=== PATIENT | male | born 1955 | race Two or more races ===

== ENCOUNTER 2019-12-09 04:41 | Emergency (ER) | payer OTHER ==
[2019-12-09] MEDS ORDERED: PHENAZOPYRIDINE HCL 100 MG TABLET (FP) PO ONE (05:08)
[2019-12-09] MEDS ORDERED: PHENAZOPYRIDINE HCL 100 MG TABLET (FP) ONE (05:08)
--- NOTE | 2019-12-09 05:16 | PDOC ---
History of Present Illness - General Chief Complaint: Urinary Catheter Problem Stated Complaint: CATHETER PROBLEM Past History - Medical History Allergies/Adverse Reactions: Allergies Allergy/AdvReac Type Severity Reaction Status Date / Time No Known Allergies Allergy Verified 12/09/19 04:56 Home Medications: Ambulatory Orders Lisinopril/Hydrochlorothiazide [Lisinopril-Hctz 20-25 mg Tab] 1 tab PO DAILY 09/29/19 Metformin HCl [Glucophage] 500 mg PO BID 09/29/19 Docusate Sodium [Colace] 50 mg PO DAILY 5 Days #5 capsule 12/09/19 Oxybutynin Chloride [Ditropan Xl] 5 mg PO DAILY 4 Days #4 tab.er.24 12/09/19 Anemia: No Asthma: No Cancer: No Cardiac Disorders: No CVA: No COPD: No CHF: No Dementia: No Diabetes: Yes GI Disorders: No Disorders: No HTN: Yes Hypercholesterolemia: No Liver Disease: No Seizures: No Thyroid Disease: No - Surgical History Abdominal Surgery: No Appendectomy: No Cardiac Surgery: No Cholecystectomy: No Lung Surgery: No Neurologic Surgery: No Orthopedic Surgery: Yes (RIGHT ARM SX 2009) - Psycho-Social/Smoking History Smoking History: Never smoked Have you smoked in the past 12 months: No Information on smoking cessation initiated: No - Substance Abuse Hx (Audit-C & DAST Scrn) How often the patient has a drink containing alcohol: Never Score: In Men: 4 or > Positive; In Women: 3 or > Positive: 0 Screen Result (Pos requires Nsg. Audit-10AR): Negative In the last yr the pt used illegal drug/Rx for NonMed reason: No Score: Yes response is considered Positive: 0 Screen Result (Positive result requires Nsg. DAST-10): Negative *Physical Exam - Vital Signs Last Vital Signs Temp Pulse Resp BP Pulse Ox 98.6 F 107 H 20 155/97 100 12/09/19 04:56 12/09/19 04:56 12/09/19 04:56 12/09/19 04:56 12/09/19 04:56 ED Treatment Course - LABORATORY CBC & Chemistry Diagram: 12/09/19 06:30 12/09/19 06:30 - Medications Given in the ED: ED Medications Discontinued Medications Generic Name Dose Route Start Last Admin Trade Name Freq PRN Reason Stop Dose Admin Phenazopyridine HCl 100 mg 12/09/19 05:08 12/09/19 05:12 Pyridium - PO 12/09/19 05:09 100 mg ONCE ONE Administration Medical Decision Making - Medical Decision Making 12/09/19 05:14 HPI: 64yo M hx DM, HTN, and recent unknown bladder surgery (pt states there was a stone and a biopsy was done) on 12/05/[address] Rios at [facility] with placement of catheter c/o penis pain, dysuria and suprapubic pain with urination, and leaking around catheter since surgery. No pain meds tried. On last day bactrim course. Endorses small amounts of blood intermittently in urine. Unable to sleep 2/2 pain. PCP - Cynthia Baez ROS: Constitutional: Positive for fatigue. Negative for chills, fever, diaphoresis. HENT: Negative for sore throat, rhinorrhea, congestion. Eyes: Negative for visual disturbance. Respiratory: Negative for shortness of breath, cough, and wheezing. Cardiovascular: Negative for chest pain, palpitations, and leg swelling. Gastrointestinal: Positive for suprapubic pain. Negative for blood in stool, constipation, diarrhea, nausea, and vomiting. Genitourinary: Positive for dysuria, hematuria, carbone, penile pain. Negative for flank pain. Musculoskeletal: Negative for myalgias, back pain, and neck pain. Skin: Negative for rash. Neurological: Negative for light-headedness, dizziness, vertigo, syncope, weakness, numbness and headaches. Psychiatric/Behavioral: Negative for behavioral problems and confusion. PE: Gen: Alert, NAD, uncomfortable-appearing. HEENT: PERRL, EOMI, MMM, NCAT. No conjunctival pallor. Sclera are non-icteric. CV: Regular rate and rhythm. No murmurs, rubs, or gallops. PULM: No resp distress. CTAB, no wheezes, rales, or rhonchi. ABD: soft, +TTP suprapubic with guarding, ND, no rebound tenderness, no CVA tenderness. : no external abnormalities, carbone catheter in place, no discharge, minimal urine leakage around catheter from urethra, dark urine in bag, bag on calf appears to be pulling at catheter. BACK: No TTP of c/t/l-spine. No step-offs or deformities. MSK: No bony deformities. 2+ pulses in all extremities. NEURO: AAOx3. PERRL. No gross CN deficits. Strength and sensation grossly intact throughout. EXTREMITIES: No cyanosis. No clubbing. No edema. PSYCH: Normal mood and thought pattern. SKIN: Warm and dry. Normal capillary refill. No rashes. No jaundice. MDM: 64yo M hx DM, HTN, and recent unknown bladder surgery (pt states there was a stone and a biopsy was done) on 12/05/[address] Rios at [facility] with placement of catheter c/o penis pain, dysuria and suprapubic pain with urination, and leaking around catheter since surgery. Hemodynamically stable, afebrile, PE notable for suprapubic TTP with guarding and penile pain with minimal movement of catheter, minimal leaking around penis, bag on calf appears to be pulling at catheter in penis, urine dark. Ddx: incorrect catheter size, incorrect catheter placement, leaking catheter, UTI, infection, metabolic derangement, anemia Pt refuses larger catheter Deflated and re-inflated catheter balloon with POCUS and confirmed correct placement in bladder -Pain management: tylenol, pyridium -UA/UC -Dispo: pending UA UA + for UTI -CBC,CMP,BC -EKG -Meropenem 1g []labs, likely admit for catheter-associated UTI failed bactrim Signed out to day team. Discharge - Discharge Information Problems reviewed: Yes Clinical Impression/Diagnosis: Carbone catheter problem Qualifiers: Encounter type: initial encounter Qualified Code(s): T83.9XXA - Unspecified complication of genitourinary prosthetic device, implant and graft, initial encounter Condition: Stable Disposition: HOME - Additional Discharge Information Prescriptions: Docusate Sodium [Colace] 50 mg PO DAILY 5 Days #5 capsule Oxybutynin Chloride [Ditropan Xl] 5 mg PO DAILY 4 Days #4 tab.er.24 - Follow up/Referral Referrals: Cynthia Wise NP [Primary Care Provider] - Gaurav Zaragoza MD [Staff Physician] - - Patient Discharge Instructions Patient Printed Discharge Instructions: How to Care for Your Carbone Catheter -- Male, DI for Dysuria -- Adult Additional Instructions: Lo lai visto por eubanks problema con el catter de Carbone. Lo hemos arreglado y co nfirmado eubanks correcta colocacin con ecografa. Asegrese de mantener la bolsa en eubanks muslo para que no tire de eubanks pene. Siga las instrucciones adjuntas para eubanks cuidado. Llame a eubanks urlogo hoy para programar denise jethro de seguimiento dentro de las 72 horas. Si siente dolor, puede german Tylenol ayesha se indica en el frasco del medicamento, dina no exceda los 4 g de Tylenol al da. Jimena un seguimiento con eubanks mdico de atencin primaria dentro de 1 semana. Regrese al Departamento de Emergencias de inmediato si experimenta fiebre, vmitos, dolor abdominal, incapacidad para orinar o cualquier otro sntoma nuevo o que empeora. You have been seen for your carbone catheter problem. We have fixed it and confirmed correct placement with ultrasound. Make sure you keep the bag on your thigh so it does not pull at your penis. Follow the attached instructions for care. We have sent you medication that might help the discomfort. It went to the [facility] at [address] [place] [address], in [place], [place]. Please fill this prescription today. Take them together. Call your urologist today to make a follow-up appointment for within 72 hours. If you experience pain, you can take Tylenol as directed on the medication bottle, but do not exceed 4g of Tylenol a day. Follow-up with your primary care doctor within 1 week. Return to the Emergency Department immediately if you experience fever, vomiti ng, abdominal pain, inability to urinate, or any other new or worsening symptom. - Post Discharge Activity
[2019-12-09] MEDS ORDERED: ACETAMINOPHEN 325 MG TABLET (FP) PO ONE (05:28)
[2019-12-09 05:32] VITALS: BMI 25.0
[2019-12-09] MEDS ORDERED: ACETAMINOPHEN 325 MG TABLET (FP) ONE (05:32)
--- NOTE | 2019-12-09 06:18 | PDOC ---
Attending Attestation - Resident Resident Name: Sophia Thompson - ED Attending Attestation I have performed the following: I have examined & evaluated the patient, The case was reviewed & discussed with the resident, I agree w/resident's findings & plan - HPI HPI: 12/09/19 06:15 Pt complaining that his carbone cath hurts. Pt's leg bag is hanging low on his leg; coming apart.Pt has no fever. There is red and dark urine in the bag - Physicial Exam PE: 12/09/19 06:16 Pt has minl suprapubic pain. Pt is anxious Pt has no fever no chills Pt has normal HEENT heart and lungs Penis is normal - Medical Decision Making 12/09/19 06:17 Pt's cath was deflated and under US guidance was placed further in bladder and the balloon was re-inflated. Good position,. Pt's cath was affixed with a sticker and leg bag placed tightly on the leg. UA sent for UA and Ucx. Pt signed out to the day ER team Discharge - Discharge Information Problems reviewed: Yes Clinical Impression/Diagnosis: Carbone catheter problem Qualifiers: Encounter type: initial encounter Qualified Code(s): T83.9XXA - Unspecified complication of genitourinary prosthetic device, implant and graft, initial encounter Condition: Stable Disposition: HOME - Additional Discharge Information Prescriptions: Docusate Sodium [Colace] 50 mg PO DAILY 5 Days #5 capsule Oxybutynin Chloride [Ditropan Xl] 5 mg PO DAILY 4 Days #4 tab.er.24 - Follow up/Referral Referrals: Gaurav Zaragoza MD [Staff Physician] - Cynthia Wise NP [Primary Care Provider] - - Patient Discharge Instructions Patient Printed Discharge Instructions: How to Care for Your Carbone Catheter -- Male, DI for Dysuria -- Adult Additional Instructions: Lo lai visto por eubanks problema con el catter de Carbone. Lo hemos arreglado y confirmado eubanks correcta colocacin con ecografa. Asegrese de mantener la bolsa en eubanks muslo para que no tire de eubanks pene. Siga las instrucciones adjuntas para eubanks cuidado. Llame a eubanks urlogo hoy para programar denise jethro de seguimiento dentro de las 72 horas. Si siente dolor, puede german Tylenol ayesha se indica en el frasco del medicamento, dina no exceda los 4 g de Tylenol al da. Jimena un seguimiento con eubanks mdico de atencin primaria dentro de 1 semana. Regrese al Departamento de Emergencias de inmediato si experimenta fiebre, vmitos, dolor abdominal, incapacidad para orinar o cualquier otro sntoma nuevo o que empeora. You have been seen for your carbone catheter problem. We have fixed it and confirmed correct placement with ultrasound. Make sure you keep the bag on your thigh so it does not pull at your penis. Follow the attached instructions for care. We have sent you medication that might help the discomfort. It went to the [facility] at [address] [place] [address], in [place], [place]. Please fill this prescription today. Take them together. Call your urologist today to make a follow-up appointment for within 72 hours. If you experience pain, you can take Tylenol as directed on the medication bottle, but do not exceed 4g of Tylenol a day. Follow-up with your primary care doctor within 1 week. Return to the Emergency Department immediately if you experience fever, vomiting, abdominal pain, inability to urinate, or any other new or worsening symptom. - Post Discharge Activity
[2019-12-09 06:20] LABS: EPI CELLS >36 /uL (0-25.1); HYALINE CASTS 9 /uL (0-3.1); PH,URINE 5.5 (5.0-8.0); URINE APPEARANCE CLOUDY; URINE BACTERIA 54 /uL (0-1359); URINE BILIRUBIN NEGATIVE (NEGATIVE); URINE COLOR ORANGE; URINE GLUCOSE (UA) NEGATIVE (NEGATIVE); URINE KETONE NEGATIVE (NEGATIVE); URINE LEUK ESTERASE 2+ (NEGATIVE); URINE NITRITE NEGATIVE (NEGATIVE); URINE PROTEIN 3+ (NEGATIVE); URINE RBC 11937 /uL (0-23.9); URINE WBC 181 /uL (0-25.8)
[2019-12-09 06:24] VITALS: TEMP 97.8
[2019-12-09] MEDS ORDERED: SODIUM CHLORIDE 1,000 ML IV STA (06:31)
[2019-12-09] MEDS ORDERED: MEROPENEM 1 GM in DEXTROSE 5%-WATER 100 ML IVPB ONE (06:32)
[2019-12-09] MEDS ORDERED: MEROPENEM 1 GM VIAL (RESTRICTED TO ID) IVPB ONE (06:46)
--- NOTE | 2019-12-09 07:19 | PDOC ---
*Physical Exam - Vital Signs Last Vital Signs Temp Pulse Resp BP Pulse Ox 97.8 F 78 17 130/73 98 12/09/19 06:23 12/09/19 06:23 12/09/19 06:23 12/09/19 06:23 12/09/19 06:23 - Physical Exam 12/09/19 07:[address] Thompson. Pt of Brendan Rojo at [facility] Uro px this past week and was d/c on bactrim w/ carbone. Came in w/ penile pain, carbone. Urine in bag was red. UA showed +protein, whole blood, leuk esterase. Started on meropenem. Has not been febrile. When I introduced himself he stated he's now having L chest discomfort -> ordered troponin and EKG. Will wait for labs and then call Dr. Rojo. Call with Dr Rojo: - He stated that the patient is very anxious and is probably in pain due to the catheter placement. He said the size of the catheter is probably responsible for the pain, but a smaller one could lead to an occlusion. - He stated that although the urine is red, this is expected because the pt just had a large bladder stone removed. - he told me "the UA is useless and do not pay any attention to it. He just had a urologic procedure, so I expect the UA to be abnormal." - he told me that changing the antibiotic from bactrim to meropenem based on the UA was not the correct move because the UA is expected to be abnormal. - I asked for a recommendation for the pain, and he suggested (anti-spasmotic) Ditroban 5mg ER qD + colace qD + good hydration. - I told him that, based on the clinical picture - no elevated WBC, no systemic symptoms (no fever, no chills, no diaphoresis), the only abnormal finding is the UA, which is expected to be abnormal at this stage, that the patient can go home with follow-up next week. Dr Rojo did not disagree. Based on this - I will discharge the patient with the suggested medication, strict return precautions, and follow-up referral with Dr. Rojo. Sent Ditropan 5mg ER qD x4 days and Colace 50mg qD x5days to pharmacy. 12/09/19 07:50 12/09/19 09:07 12/09/19 09:32 12/09/19 10:03 Heart Score/ECG Review - Electrocardiogram EKG: Normal - Age Age: >/= 65 ED Treatment Course - LABORATORY CBC & Chemistry Diagram: 12/09/19 06:30 12/09/19 06:30 - ADDITIONAL ORDERS Additional order review: Laboratory Results 12/09/19 05:54 Urine Color [place] Urine Appearance Cloudy Urine pH 5.5 Ur Specific [place] 1.016 Urine Protein 3+ H Urine Glucose (UA) Negative Urine Ketones Negative Urine Blood 3+ H Urine Nitrite Negative Urine Bilirubin Negative Urine Urobilinogen 1.0 Ur Leukocyte Esterase 2+ H Urine WBC (Auto) 181 Urine RBC (Auto) 25744 Urine Casts (Auto) 9 U Epithel Cells (Auto) >36 Urine Bacteria (Auto) 54 - Medications Given in the ED: ED Medications Discontinued Medications Generic Name Dose Route Start Last Admin Trade Name Freq PRN Reason Stop Dose Admin Acetaminophen 975 mg 12/09/19 05:28 12/09/19 05:34 Tylenol - PO 12/09/19 05:29 975 mg ONCE ONE Administration Meropenem 1 gm/ Dextrose 100 mls @ 200 mls/hr 12/09/19 06:32 12/09/19 06:53 IVPB 12/09/19 07:01 200 mls/hr ONCE ONE Administration Phenazopyridine HCl 100 mg 12/09/19 05:08 12/09/19 05:12 Pyridium - PO 12/09/19 05:09 100 mg ONCE ONE Administration Discharge - Discharge Information Problems reviewed: Yes Clinical Impression/Diagnosis: Carbone catheter problem Qualifiers: Encounter type: initial encounter Qualified Code(s): T83.9XXA - Unspecified complication of genitourinary prosthetic device, implant and graft, initial encounter Condition: Stable Disposition: HOME - Admission No - Additional Discharge Information Prescriptions: Docusate Sodium [Colace] 50 mg PO DAILY 5 Days #5 capsule Oxybutynin Chloride [Ditropan Xl] 5 mg PO DAILY 4 Days #4 tab.er.24 - Follow up/Referral Referrals: Gaurav Zaragoza MD [Staff Physician] - Cynthia Wise NP [Primary Care Provider] - - Patient Discharge Instructions Patient Printed Discharge Instructions: How to Care for Your Carbone Catheter -- Male, DI for Dysuria -- Adult Additional Instructions: Lo lai visto por eubanks problema con el catter de Carbone. Lo hemos arreglado y confirmado eubanks correcta colocacin con ecografa. Asegrese de mantener la bolsa en eubanks muslo para que no tire de eubanks pene. Siga las instrucciones adjuntas para eubanks cuidado. Llame a eubanks urlogo hoy para programar denise jethro de seguimiento dentro de las 72 horas. Si siente dolor, puede german Tylenol ayesha se indica en el frasco del medicamento, dina no exceda los 4 g de Tylenol al da. Jimena un seguimiento con eubanks mdico de atencin primaria dentro de 1 semana. Regrese al Departamento de Emergencias de inmediato si experimenta fiebre, vmitos, dolor abdominal, incapacidad para orinar o cualquier otro sntoma nuevo o que empeora. You have been seen for your carbone catheter problem. We have fixed it and confirmed correct placement with ultrasound. Make sure you keep the bag on your thigh so it does not pull at your penis. Follow the attached instructions for care. We have sent you medication that might help the discomfort. It went to the [facility] at [address] [place] [address], in [place], [place]. Please fill this prescription today. Take them together. Call your urologist today to make a follow-up appointment for within 72 hours. If you experience pain, you can take Tylenol as directed on the medication bottle, but do not exceed 4g of Tylenol a day. Follow-up with your primary care doctor within 1 week. Return to the Emergency Department immediately if you experience fever, vomiting, abdominal pain, inability to urinate, or any other new or worsening symptom. - Post Discharge Activity
[2019-12-09 07:46] LABS: BASO % 0.2 % (0-2.0); EOS % 1.3 % (0-4.5); HEMATOCRIT 36.5 % (35.4-49); HEMOGLOBIN 12.5 GM/dL (11.7-16.9); LYMPH % 13.7 % (8-40); MCH 32.1 pg (25.7-33.7); MCHC 34.2 g/dl (32.0-35.9); MEAN CELL VOLUME 93.9 fl (80-96); MEAN PLT VOLUME 9.8 fl (7.5-11.1); MONO % 7.5 % (3.8-10.2); NEUT % 77.3 % (42.8-82.8); PLATELET COUNT 191 K/MM3 (134-434); RBC 3.89 M/mm3 (4.00-5.60); RDW 12.9 % (11.9-15.9); WHITE BLOOD COUNT 6.2 K/mm3 (4.0-10.0)
[2019-12-09 08:22] LABS: ALBUMIN 3.7 g/dl (3.4-5.0); ALK PHOS 65 U/L (45-117); ANION GAP 8 MMOL/L (8-16); BILIRUBIN,TOTAL 0.7 mg/dL (0.2-1); BLOOD UREA NITROGEN 12.2 mg/dL (7-18); CALCIUM 9.7 mg/dL (8.5-10.1); CHLORIDE 101 mmol/L (98-107); CO2 29 mmol/L (21-32); GLUCOSE,RANDOM 158 mg/dL (74-106); POTASSIUM 3.5 mmol/L (3.5-5.1); SGOT/AST 13 U/L (15-37); SGPT/ALT 17 U/L (13-61); SODIUM 138 mmol/L (136-145); TOT PROT 6.6 g/dl (6.4-8.2)
--- NOTE | 2019-12-09 08:51 | EKG ---
Test Reason : Blood Pressure : / mmHG Vent. Rate : 075 BPM Atrial Rate : 075 BPM P-R Int : 198 ms QRS Dur : 090 ms QT Int : 386 ms P-R-T Axes : 064 051 037 degrees QTc Int : 431 ms NORMAL SINUS RHYTHM POSSIBLE LEFT ATRIAL ENLARGEMENT BORDERLINE ECG WHEN COMPARED WITH ECG OF 29-SEP-2019 15:35, PREMATURE VENTRICULAR COMPLEXES ARE NO LONGER PRESENT MINIMAL CRITERIA FOR INFERIOR INFARCT ARE NO LONGER PRESENT NONSPECIFIC T WAVE ABNORMALITY NO LONGER EVIDENT IN INFERIOR LEADS NONSPECIFIC T WAVE ABNORMALITY NO LONGER EVIDENT IN LATERAL LEADS Confirmed by Marisol Montemayor ([id number]) on 12/09/2019 8:50:53 AM Referred By: Confirmed By:Marisol Montemayor
[2019-12-09 10:17] VITALS: BP 137/62; PULSE 61
--- NOTE | 2019-12-10 10:56 | EKG ---
Test Reason : Blood Pressure : / mmHG Vent. Rate : 059 BPM Atrial Rate : 059 BPM P-R Int : 196 ms QRS Dur : 092 ms QT Int : 408 ms P-R-T Axes : 060 045 041 degrees QTc Int : 403 ms SINUS BRADYCARDIA POSSIBLE LEFT ATRIAL ENLARGEMENT BORDERLINE ECG WHEN COMPARED WITH ECG OF 09-DEC-2019 06:45, NO SIGNIFICANT CHANGE WAS FOUND Confirmed by Chandler Harris ([id number]) on 12/10/2019 10:55:47 AM Referred By: Confirmed By:Chandler Harris
== END 2019-12-09 10:29 | disposition home or self-care (01) ==
LOC: JER 04:41
PROC: 3E033GC Introduction of Other Therapeutic Substance into Peripheral Vein, Percutaneous Approach (ICD-10-PCS; principal; 2019-12-09)
DX: T83.9XXA Unspecified complication of genitourinary prosthetic device, implant and graft, initial encounter (principal)
CPT/HCPCS: 36415; 80053; 81003; 83036; 84484; 85025; 87040; 87086; 93005; 93010; 99284-25; U0003

== ENCOUNTER 2021-03-17 09:25 | Emergency (ER) | payer OTHER ==
[2021-03-17 09:37] VITALS: PULSE 84; TEMP 97.6; BMI 31.6
[2021-03-17] MEDS ORDERED: KETOROLAC TROMETHAMINE 30 MG/1 ML VIAL IM ONE (10:21)
[2021-03-17] MEDS ORDERED: KETOROLAC TROMETHAMINE 30 MG/1 ML VIAL ONE (10:26)
[2021-03-17 10:57] VITALS: BP 171/82
== END 2021-03-17 10:55 | disposition home or self-care (01) ==
LOC: JER 09:25
PROC: 3E0233Z Introduction of Anti-inflammatory into Muscle, Percutaneous Approach (ICD-10-PCS; principal; 2021-03-17)
DX: S60.211A Contusion of right wrist, initial encounter (principal); S63.501A Unspecified sprain of right wrist, initial encounter; W22.8XXA Striking against or struck by other objects, initial encounter; Y92.9 Unspecified place or not applicable
CPT/HCPCS: 73110-TC-RT-FY; 73130-TC-RT-FY; 96372; 99284-25

== ENCOUNTER 2022-03-18 12:11 | Emergency (ER) | payer OTHER ==
[2022-03-18 12:30] VITALS: BP 153/93; PULSE 75; RESP 18; TEMP 97.3; BMI 31.6
[2022-03-18] MEDS ORDERED: NAPROXEN 500 MG TABLET PO ONE (14:35)
[2022-03-18] MEDS ORDERED: NAPROXEN 500 MG TABLET ONE (14:36)
== END 2022-03-18 15:24 | disposition home or self-care (01) ==
LOC: JERFT 12:11
DX: S69.92XA Unspecified injury of left wrist, hand and finger(s), initial encounter (principal); W23.0XXA Caught, crushed, jammed, or pinched between moving objects, initial encounter
CPT/HCPCS: 73140-TC-LT-FY; 99283-25

== ENCOUNTER 2023-10-22 18:08 | Emergency (ER) | payer OTHER ==
[2023-10-22 18:15] VITALS: BP 141/78; PULSE 99; RESP 18; TEMP 97.9; BMI 27.3
[2023-10-22 19:26] LABS: EOS % 1.4 % (0-4.5)
[2023-10-22 19:33] LABS: URINE APPEARANCE CLEAR; URINE BILIRUBIN NEGATIVE (NEGATIVE); URINE COLOR YELLOW; URINE GLUCOSE (UA) 3+ (NEGATIVE); URINE KETONE NEGATIVE (NEGATIVE); URINE LEUK ESTERASE NEGATIVE (NEGATIVE); URINE NITRITE NEGATIVE (NEGATIVE); URINE PROTEIN NEGATIVE (NEGATIVE); URINE UROBILINOGEN 0.2 mg/dL (0.2-1.0)
[2023-10-22 19:35] LABS: BASO % 0.3 % (0-2.0); HEMATOCRIT 44.5 % (35.4-49); HEMOGLOBIN 15.3 GM/dL (11.7-16.9); LYMPH % 27.8 % (8-40); MCHC 34.4 g/dl (32.0-35.9); MONO % 7.2 % (3.8-10.2); NEUT % 63.3 % (42.8-82.8); PLATELET COUNT 227 10^3/uL (134-434); RBC 4.94 M/mm3 (4.00-5.60); RDW 13.1 % (11.9-15.9); WHITE BLOOD COUNT 7.5 K/mm3 (4.0-10.0)
[2023-10-22 19:44] LABS: POTASSIUM 4.4 mmol/L (3.5-5.1)
[2023-10-22 19:46] LABS: ALBUMIN 4.2 g/dl (3.4-5.0); BLOOD UREA NITROGEN 28.1 mg/dL (7-18); CALCIUM 10.5 mg/dL (8.5-10.1)
[2023-10-22 19:50] LABS: CREATININE 1.1 mg/dL (0.55-1.3)
[2023-10-22 19:51] LABS: TOT PROT 7.8 g/dl (6.4-8.2)
== END 2023-10-22 20:23 | disposition home or self-care (01) ==
LOC: JER 18:08
DX: N36.8 Other specified disorders of urethra (principal); R31.9 Hematuria, unspecified; R30.0 Dysuria; R10.30 Lower abdominal pain, unspecified
CPT/HCPCS: 36415; 80053; 81003; 85025; 87086; 99283-25

== ENCOUNTER 2024-06-27 17:51 | Emergency (ER) | payer MEDICARE ==
[2024-06-27 18:04] VITALS: BP 165/80; PULSE 86; RESP 17; TEMP 98.4; BMI 26.6
== END 2024-06-27 22:38 | disposition left against medical advice (07) ==
LOC: JER 17:51 → JERFT 17:51
DX: M54.50 Low back pain, unspecified (principal); R51.9 Headache, unspecified; M54.2 Cervicalgia; V49.40XA Driver injured in collision with unspecified motor vehicles in traffic accident, initial encounter; Y92.410 Unspecified street and highway as the place of occurrence of the external cause
CPT/HCPCS: 70450-TC; 72100-TC-FY; 72125-TC; 99284-25